=== PATIENT | female | born 1995 | race Caucasian/White ===

== ENCOUNTER 2016-10-04 22:22 | Emergency (ER) | payer MEDICAID ==
--- NOTE | 2016-10-04 22:34 | ERPHSYRPT ---
- History of Present Illness Time Seen by Provider: 10/04/16 22:29 Source: patient Exam Limitations: no limitations Physician History: The patient is a 21-year-old female with her significant other complaining of a painful itchy "rash" in her genital region that has gotten worse over the past 2 days. She has no significant past medical history of skin rashes. Timing/Duration: day(s) (2) Quality: burning, painful Severity: moderate Location: genitalia Possible Causes: no cause identified Associated Symptoms: rash Allergies/Adverse Reactions: sulfamethoxazole [From Bactrim] Allergy (Mild, Verified 08/12/13 20:33) Hives ALSO REPORTS DIZZINESS trimethoprim [From Bactrim] Allergy (Mild, Verified 08/12/13 20:33) Hives ALSO REPORTS DIZZINESS Hx Tetanus, Diphtheria Vaccination/Date Given: Yes Hx Influenza Vaccination/Date Given: No Hx Pneumococcal Vaccination/Date Given: No - Review of Systems Constitutional: No Fever, No Chills Eyes: No Symptoms Ears, Nose, & Throat: No Symptoms Respiratory: No Cough, No Dyspnea Cardiac: No Chest Pain, No Edema, No Syncope Abdominal/Gastrointestinal: No Abdominal Pain, No Nausea, No Vomiting, No Diarrhea Genitourinary Symptoms: No Dysuria Musculoskeletal: No Back Pain, No Neck Pain Skin: Rash, Skin Lesions Neurological: No Dizziness, No Focal Weakness, No Sensory Changes Psychological: No Symptoms Endocrine: No Symptoms Hematologic/Lymphatic: No Symptoms Immunological/Allergic: No Symptoms All Other Systems: Reviewed and Negative - Past Medical History Pertinent Past Medical History: Yes Neurological History: No Pertinent History ENT History: No Pertinent History Cardiac History: No Pertinent History Respiratory History: No Pertinent History Endocrine Medical History: No Pertinent History Musculoskeletal History: No Pertinent History GI Medical History: No Pertinent History History: No Pertinent History Psycho-Social History: Depression Female Reproductive Disorders: Other Other Medical History: CYST ON OVARIES - Past Surgical History Past Surgical History: Yes Neuro Surgical History: No Pertinent History Cardiac: No Pertinent History Respiratory: No Pertinent History Gastrointestinal: No Pertinent History Genitourinary: No Pertinent History Musculoskeletal: No Pertinent History Female Surgical History: No Pertinent History Other Surgical History: TONSILECTOMY - Social History Smoking Status: Current every day smoker How long have you smoked: 2 Exposure to second hand smoke: Yes Drug Use: none Patient Lives Alone: No Significant Family History: no pertinent family hx - Female History Hx Now: No - Physical Exam General Appearance: no apparent distress, alert Eye Exam: PERRL/EOMI, eyes nml inspection Ears, Nose, Throat Exam: normal ENT inspection, pharynx normal, moist mucous membranes Neck Exam: normal inspection, non-tender, supple, full range of motion Respiratory Exam: normal breath sounds, lungs clear, No respiratory distress Cardiovascular Exam: regular rate/rhythm, normal heart sounds Gastrointestinal/Abdomen Exam: soft, mass, No tenderness Pelvic Exam: other (Examination of the external genitalia region is significant for 3-4 pustular lesions on each side of the vulva. The patient has shaved her pubic hair. These pustular lesions appear to be at the follicles.) Rectal Exam: not done Back Exam: normal inspection, normal range of motion, No CVA tenderness, No vertebral tenderness Extremity Exam: normal inspection, normal range of motion Neurologic Exam: alert, oriented x 3, cooperative, normal mood/affect, sensation nml, No motor deficits Skin Exam: rash (as noted in pelvic note) SpO2 Interpretation: normal - Progress Progress: unchanged Counseled pt/family regarding: diagnosis - Departure Time of Disposition: 22:36 Departure Disposition: Home Clinical Impression: Folliculitis barbae Condition: Stable Critical Care Time: No Additional Instructions: You have an infection in the hair follicles around your genitals. He was given a prescription for clindamycin 300 mg 3 times a day for 7 days. Avoid shaving the region until healed. Prescriptions: Clindamycin HCl 1 cap PO TID #21 capsule
[2016-10-04] MEDS ORDERED: CLEOCIN 150 MG CAPSULE PO ONE (22:39)
[2016-10-04] MEDS ORDERED: CLEOCIN 150 MG CAPSULE ONE (22:43)
[2016-10-04 23:04] VITALS: BP 130/78; PULSE 88; O2SAT 100
== END 2016-10-04 23:04 | disposition home or self-care (01) ==
LOC: ED 22:22
DX: L73.8 Other specified follicular disorders (principal)
CPT/HCPCS: 99283; A9270-GY

== ENCOUNTER 2017-02-28 01:01 | Emergency (ER) | payer OTHER ==
--- NOTE | 2017-02-28 01:23 | ERPHSYRPT ---
- History of Present Illness Time Seen by Provider: 02/28/17 01:10 Source: patient Exam Limitations: no limitations Physician History: FOR THE PAST WEEK PT HAS HAD LOW ABDOMINAL PAIN, LOW BACK PAIN, DIAPHORESIS AND SWOLLEN LEGS; FOR THE PAST 2 DAYS SPOTTING; FOR THE PAST 9 WEEKS INCREASED URINARY FREQUENCY. LMP WAS 9 WEEKS AGO. PT HAS SEEN DR BATISTA(OB DR) [place] WITH A NORMAL ULTRASOUND 2 WEEKS AGO. Allergies/Adverse Reactions: sulfamethoxazole [From Bactrim] Allergy (Mild, Verified 08/12/13 20:33) Hives ALSO REPORTS DIZZINESS trimethoprim [From Bactrim] Allergy (Mild, Verified 08/12/13 20:33) Hives ALSO REPORTS DIZZINESS Hx Tetanus, Diphtheria Vaccination/Date Given: Yes Hx Influenza Vaccination/Date Given: No Hx Pneumococcal Vaccination/Date Given: No - Review of Systems Constitutional: No Fever Abdominal/Gastrointestinal: Abdominal Pain, No Vomiting Genitourinary Symptoms: Frequency, Vaginal Bleeding Musculoskeletal: Back Pain (LOW), Other (SWOLLEN LEGS) Endocrine: Excessive Sweating All Other Systems: Reviewed and Negative - Past Medical History Pertinent Past Medical History: Yes Neurological History: No Pertinent History ENT History: No Pertinent History Cardiac History: No Pertinent History Respiratory History: No Pertinent History Endocrine Medical History: No Pertinent History Musculoskeletal History: No Pertinent History GI Medical History: No Pertinent History History: No Pertinent History Psycho-Social History: Depression Female Reproductive Disorders: Other Other Medical History: CYST ON OVARIES - Past Surgical History Past Surgical History: Yes Neuro Surgical History: No Pertinent History Cardiac: No Pertinent History Respiratory: No Pertinent History Gastrointestinal: No Pertinent History Genitourinary: No Pertinent History Musculoskeletal: No Pertinent History Female Surgical History: No Pertinent History Other Surgical History: TONSILECTOMY - Social History Smoking Status: Current every day smoker How long have you smoked: 2 Exposure to second hand smoke: Yes Drug Use: none Patient Lives Alone: No Significant Family History: no pertinent family hx - Female History Hx Now: No - Nursing Vital Signs Nursing Vital Signs: Initial Vital Signs Temperature 98.0 F 02/28/17 01:06 Pulse Rate 109 H 02/28/17 01:06 Respiratory Rate 20 02/28/17 01:06 Blood Pressure 160/86 02/28/17 01:06 O2 Sat by Pulse Oximetry 97 02/28/17 01:06 Pain Scale Pain Intensity 6 - Physical Exam General Appearance: alert Eye Exam: PERRL/EOMI Ears, Nose, Throat Exam: pharynx normal, moist mucous membranes Neck Exam: normal inspection Respiratory Exam: lungs clear Cardiovascular Exam: normal heart sounds Gastrointestinal/Abdomen Exam: soft, normal bowel sounds, tenderness (MILD DIFFUSE TENDERNESS) Back Exam: normal range of motion Extremity Exam: normal inspection, No pedal edema Neurologic Exam: alert, cooperative Skin Exam: warm, dry SpO2 Interpretation: normal SpO2: 97 Oxygen Delivery: Room Air - Course Nursing assessment & vital signs reviewed: Yes - Radiology Ultrasound Exam OB Ultrasound: Other (TECH REPORT: SMALL SUBCHORIONIC HEMORRHAGE; HEART RATE = 132.) Ordered Tests: Active Orders 24 hr Category Date Time Status OB TRANSVAGINAL [US] Stat Exams 02/28/17 03:10 Ordered AMYLASE Stat Lab 02/28/17 01:31 Completed CBC W DIFF Stat Lab 02/28/17 01:31 Completed CMP Stat Lab 02/28/17 01:31 Completed HCG, Quantitative (Inhouse) Stat Lab 02/28/17 01:31 Completed LIPASE Stat Lab 02/28/17 01:31 Completed UA W/RFX UR CULTURE Stat Lab 02/28/17 01:21 Completed Lab/Rad Data: Laboratory Result Diagrams 02/28/17 01:31 02/28/17 01:31 Laboratory Results 02/28/17 02/28/17 02/28/17 Range/Units 01:31 01:31 01:31 WBC 13.4 H (4.0-10.5) K/mm3 RBC 3.99 L (4.1-5.4) M/mm3 Hgb 12.8 (12.0-16.0) gm/dl Hct 38.0 (35-47) % MCV 95.2 (78-100) fl MCH 32.0 (26-32) pg MCHC 33.7 (32-36) g/dl RDW 12.5 (11.5-14.0) % Plt Count 235 (150-450) K/mm3 MPV 10.0 H (6-9.5) fl Gran % 61.8 (36.0-66.0) % Lymphocytes % 28.4 (24.0-44.0) % Monocytes % 7.8 (0.0-12.0) % Eosinophils % 1.8 (0.00-5.0) % Basophils % 0.2 (0.0-0.4) % Basophils # 0.03 (0-0.4) Sodium 138 (136-145) mEq/L Potassium 3.9 (3.5-5.1) mEq/L Chloride 106 (98-107) mEq/L Carbon Dioxide 23.7 (21-32) mEq/L Anion Gap 12.2 (5-15) MEQ/L BUN 19 (9-20) mg/dL Creatinine 0.95 (0.55-1.30) mg/dl Estimated GFR > 60 ML/MIN Glucose 105 (70-110) MG/DL Calcium 8.6 (8.5-10.1) mg/dL Total Bilirubin 0.30 (0.2-1.0) mg/dL AST 18 (15-37) U/L ALT 32 (12-78) U/L Alkaline Phosphatase 60 (46-116) U/L Serum Total Protein 6.8 (6.4-8.2) gm/dL Albumin 3.4 (3.4-5.0) g/dL Amylase 51 (25-115) U/L Lipase 150 (73-393) U/L Beta HCG, Quant 30236 H (0-6) IU/L Ur Collection Type Urine Color (YELLOW) Urine Appearance (CLEAR) Urine pH (5-6) Ur Specific [place] (1.005-1.025) Urine Protein (Negative) Urine Ketones (NEGATIVE) Urine Blood (0-5) Clay/ul Urine Nitrite (NEGATIVE) Urine Bilirubin (NEGATIVE) Urine Urobilinogen (0-1) mg/dL Ur Leukocyte Esterase (NEGATIVE) Urine Glucose (NEGATIVE) mg/dL Specimen Received 02/28/17 Range/Units 01:21 WBC (4.0-10.5) K/mm3 RBC (4.1-5.4) M/mm3 Hgb (12.0-16.0) gm/dl Hct (35-47) % MCV (78-100) fl MCH (26-32) pg MCHC (32-36) g/dl RDW (11.5-14.0) % Plt Count (150-450) K/mm3 MPV (6-9.5) fl Gran % (36.0-66.0) % Lymphocytes % (24.0-44.0) % Monocytes % (0.0-12.0) % Eosinophils % (0.00-5.0) % Basophils % (0.0-0.4) % Basophils # (0-0.4) Sodium (136-145) mEq/L Potassium (3.5-5.1) mEq/L Chloride (98-107) mEq/L Carbon Dioxide (21-32) mEq/L Anion Gap (5-15) MEQ/L BUN (9-20) mg/dL Creatinine (0.55-1.30) mg/dl Estimated GFR ML/MIN Glucose (70-110) MG/DL Calcium (8.5-10.1) mg/dL Total Bilirubin (0.2-1.0) mg/dL AST (15-37) U/L ALT (12-78) U/L Alkaline Phosphatase (46-116) U/L Serum Total Protein (6.4-8.2) gm/dL Albumin (3.4-5.0) g/dL Amylase (25-115) U/L Lipase (73-393) U/L Beta HCG, Quant (0-6) IU/L Ur Collection Type VOID Urine Color YELLOW (YELLOW) Urine Appearance CLEAR (CLEAR) Urine pH 7.0 (5-6) Ur Specific [place] 1.010 (1.005-1.025) Urine Protein NEGATIVE (Negative) Urine Ketones NEGATIVE (NEGATIVE) Urine Blood NEGATIVE (0-5) Clay/ul Urine Nitrite NEGATIVE (NEGATIVE) Urine Bilirubin NEGATIVE (NEGATIVE) Urine Urobilinogen NORMAL (0-1) mg/dL Ur Leukocyte Esterase NEGATIVE (NEGATIVE) Urine Glucose NEGATIVE (NEGATIVE) mg/dL Specimen Received 02/28/170 - Departure Time of Disposition: 04:02 Departure Disposition: Home Clinical Impression: THREATENED Condition: Stable Critical Care Time: No Referrals: SYLVIA PHAM [Primary Care Provider] - Instructions: Threatened Additional Instructions: FOLLOW UP WITH OB DR(DR BATISTA) LATER TODAY. STRICT BED REST.
[2017-02-28 01:35] LABS: BASOPHIL % 0.2 % (0.0-0.4); Eosinophil % 1.8 % (0.00-5.0); Granulocytes % 61.8 % (36.0-66.0); Lymphocytes % 28.4 % (24.0-44.0); Mean Cell Volume 95.2 fl (78-100); Monocytes % 7.8 % (0.0-12.0); Platelet Count 235 K/mm3 (150-450); Red Blood Count 3.99 M/mm3 (4.1-5.4); Red Cell Distribution Width 12.5 % (11.5-14.0); White Blood Count 13.4 K/mm3 (4.0-10.5)
[2017-02-28 02:01] LABS: ADD URINE CULTURE? NO (NO); Bilirubin NEGATIVE (NEGATIVE); Blood NEGATIVE Ery/ul (0-5); COMPLETE URINE MICROSCOPIC? NO; Collection Type VOID; Glucose NEGATIVE (NEGATIVE); Leukocyte Esterase NEGATIVE (NEGATIVE)
[2017-02-28 02:04] LABS: ALBUMIN 3.4 g/dL (3.4-5.0); ALKALINE PHOSPHATASE 60 U/L (46-116); ANION GAP 12.2 MEQ/L (5-15); BLOOD UREA NITROGEN 19 mg/dL (9-20); CHLORIDE 106 mEq/L (98-107); Carbon Dioxide 23.7 mEq/L (21-32); Glucose 105 MG/DL (70-110); LIPASE 150 U/L (73-393); Potassium 3.9 mEq/L (3.5-5.1); SGOT/AST 18 U/L (15-37); SGPT/ALT 32 U/L (12-78); SODIUM 138 mEq/L (136-145); Total Protein 6.8 gm/dL (6.4-8.2)
[2017-02-28 04:09] VITALS: BP 130/70; PULSE 86; O2SAT 98
--- NOTE | 2017-02-28 08:57 | XRAY ---
Indication: Pain. Two-dimensional transvaginal early OB ultrasound performed. Comparison: None for this . There is a single intrauterine gestational sac with presence of a single pole. The mean sac diameter is 1.90 cm corresponding to 6 weeks 2 days. [place]-rump length measures 0.68 cm corresponding to 6 weeks 4 days. heart rate 132 bpm. Small curvilinear subchorionic hemorrhage measuring 1.7 x 0.9 x 0.7 cm. Left and right ovaries identified with a 2.5 cm left ovary corpus luteal cyst. No suspicious adnexal mass or free fluid. Impression: Single viable intrauterine measuring 6 weeks 3 days. Small subchorionic hemorrhage. Expected date confinement is October 21, 2017. Comment: Preliminary report was given.
== END 2017-02-28 04:09 | disposition home or self-care (01) ==
LOC: ED 01:01
DX: O20.0 Threatened abortion (principal)
CPT/HCPCS: 36415; 76817; 80053; 81002; 82150; 83690; 84702; 85025; 99284

== ENCOUNTER 2017-09-23 17:19 | Inpatient (IN) | payer OTHER ==
[2017-09-23] MEDS ORDERED: MORPHINE SULFATE 4 MG INJ IV ONE (17:21)
[2017-09-23] MEDS ORDERED: MORPHINE SULFATE 4 MG INJ ONE (17:23)
[2017-09-23] MEDS ORDERED: Lactated Ringers 2,000 ML IV ONE (17:23)
[2017-09-23] MEDS ORDERED: Lactated Ringers 1,000 ML IV SCH (17:30)
[2017-09-23 17:39] LABS: Hematocrit 37.8 % (35-47); Hemoglobin 12.7 gm/dl (12.0-16.0); Mean Cell Volume 92.6 fl (78-100); Mean Corpuscular Hemoglobin 31.1 pg (26-32); Mean Corpuscular Hgb Concent. 33.6 g/dl (32-36); Mean Platelet Volume 11.8 fl (6-9.5); Platelet Count 225 K/mm3 (150-450); Red Blood Count 4.08 M/mm3 (4.1-5.4); Red Cell Distribution Width 14.5 % (11.5-14.0); White Blood Count 9.3 K/mm3 (4.0-10.5)
[2017-09-23 17:57] LABS: ALBUMIN 3.6 g/dl (3.5-5.0); ALKALINE PHOSPHATASE 177 U/L (38-126); ANION GAP 18.2 MEQ/L (5-15); BLOOD UREA NITROGEN 6 mg/dl (7-17); CHLORIDE 106 mEq/L (98-107); Carbon Dioxide 17 mmol/L (22-30); Creatinine 1 0.72 mg/dl (0.52-1.04); Glucose 103 mg/dL (74-106); Potassium 3.6 mmol/L (3.5-5.1); SGOT/AST 89 U/L (14-36); SGPT/ALT 42 U/L (0-35); SODIUM 137 mmol/L (137-145); Total Protein 7.3 mg/dl (6.3-8.2)
[2017-09-23] MEDS ORDERED: OB EPIDURAL NAROPIN/SUFENTANIL IN NACL EPIDURAL PRN (18:00)
[2017-09-23] MEDS ORDERED: Lactated Ringers 1,000 ML IV ONE (18:00)
[2017-09-23] MEDS ORDERED: PITOCIN 30 UNITS/ LR 500 ML 500 ML IV SCH (18:00)
[2017-09-23] MEDS ORDERED: Ephedrine Sulfate 50 MG/ML IV PRN (18:00)
[2017-09-23 18:30] LABS: ATYPICAL LYMPHS 5 %; BAND 6 % (0.0-2.0); Lymphocytes 25 % (24-44); Monocyte 12 % (0.0-12.0); Neutrophils 52 % (36.0-66.0); Platelet Estimate NORMAL (NORMAL); Total Cells Counted 100
[2017-09-23 18:33] LABS: Amphetamine,Urine NEGATIVE (NEGATIVE); Barbiturate,Urine NEGATIVE (NEGATIVE); Benzodiazepine,Urine NEGATIVE (NEGATIVE); Cocaine,Urine NEGATIVE (NEGATIVE); Methadone,Urine NEGATIVE (NEGATIVE); Opiate,Urine NEGATIVE (NEGATIVE); PCP,Urine NEGATIVE (NEGATIVE); THC,Urine NEGATIVE (NEGATIVE)
[2017-09-23] MEDS ORDERED: XYLOCAINE 1% HCL 20 ML MDV ONE ×2 (18:48→21:18)
[2017-09-23 21:07] LABS: Appearance CLEAR (CLEAR); Bacteria FEW /HPF (NEGATIVE); Bilirubin NEGATIVE (NEGATIVE); Blood NEGATIVE Ery/ul (0-5); Epithelial Cells MODERATE /HPF (FEW); Glucose NEGATIVE (NEGATIVE); Ketones LARGE (NEGATIVE); Leukocyte Esterase TRACE (NEGATIVE); Mucus MODERATE /HPF (NEGATIVE); Nitrite NEGATIVE (NEGATIVE); Protein,Urine Dip 30 (Negative); Urobilinogen NORMAL mg/dL (0-1)
[2017-09-23] MEDS ORDERED: PITOCIN 30 UNITS/ LR 500 ML 500 ML IV ONE (21:18)
[2017-09-23] MEDS ORDERED: TUCKS TP ONE (23:59)
[2017-09-23] MEDS ORDERED: Dermoplast Spray ONE (23:59)
[2017-09-23] MEDS ORDERED: LANSINOH 40 GM ONE (23:59)
[2017-09-24] MEDS ORDERED: LANSINOH 40 GM TOP PRN (00:01)
[2017-09-24] MEDS ORDERED: Dermoplast Spray TP PRN (00:01)
[2017-09-24] MEDS: TUCKS TP PRN ×2 (00:05→22:53)
[2017-09-24] MEDS: MOTRIN 400 MG PO PRN ×3 (00:57→22:49)
[2017-09-24] MEDS ORDERED: Mylicon 80MG PO PRN (02:05)
[2017-09-24] MEDS ORDERED: Dulcolax 10 MG SUPP PR PRN (02:05)
[2017-09-24] MEDS ORDERED: Anucort-HC SUPPOSITORY PR PRN (02:05)
[2017-09-24] MEDS ORDERED: TYLENOL EXTRA STRENGTH 500 MG PO PRN (02:05)
[2017-09-24] MEDS ORDERED: CORTISONE 1% CREAM TP PRN (02:05)
[2017-09-24] MEDS ORDERED: NORCO 5/325 MG PO PRN (02:05)
[2017-09-24] MEDS ORDERED: Ambien 10 MG PO PRN (02:05)
[2017-09-24 06:00] LABS: BASOPHIL % 0.1 % (0.0-0.4); Basophil (Absolute #) 0.01 (0-0.4); Eosinophil % 0.3 % (0.00-5.0); Eosinophil (Absolute #) 0.04 (0-0.5); Granulocyte Absolute (ANC) 7.34 (1.4-6.9); Granulocytes % 62.6 % (36.0-66.0); Hemoglobin 9.4 gm/dl (12.0-16.0); Lymphocyte (Absolute #) 2.88 (1.0-4.6); Lymphocytes % 24.6 % (24.0-44.0); Mean Cell Volume 94.5 fl (78-100); Mean Corpuscular Hemoglobin 30.6 pg (26-32); Mean Corpuscular Hgb Concent. 32.4 g/dl (32-36); Mean Platelet Volume 11.9 fl (6-9.5); Monocyte (Absolute #) 1.46 (0.0-1.3); Monocytes % 12.4 % (0.0-12.0); Platelet Count 212 K/mm3 (150-450); Red Blood Count 3.07 M/mm3 (4.1-5.4); Red Cell Distribution Width 14.3 % (11.5-14.0); White Blood Count 11.7 K/mm3 (4.0-10.5)
[2017-09-24] MEDS ORDERED: FERREX 150 PO SCH (10:00)
[2017-09-24] MEDS: FEOSOL 325 MG PO SCH ×2 (11:07→22:49)
[2017-09-24] MEDS: Colace 100 MG PO SCH ×2 (11:07→22:50)
[2017-09-24] MEDS: THERAGRAN MULTIVITAMIN PO SCH (11:08)
[2017-09-24] MEDS: KEFLEX 500 MG PO SCH ×4 (11:08→22:50)
[2017-09-24] MEDS ORDERED: MEDICATION INTERVENTION PO SCH (14:45)
[2017-09-24] MEDS ORDERED: NALOXONE HCL PO SCH (22:00)
[2017-09-24] MEDS ORDERED: [UNRECOGNIZED DRUG - OTHER] PO SCH (22:00)
[2017-09-24] MEDS ORDERED: BUPRENORPHINE HCL PO SCH (22:00)
[2017-09-25] MEDS ORDERED: Adacel Vial IM ONE (09:00)
[2017-09-25] MEDS: THERAGRAN MULTIVITAMIN PO SCH (09:43)
[2017-09-25] MEDS: KEFLEX 500 MG PO SCH ×3 (09:43→17:36)
[2017-09-25] MEDS: Colace 100 MG PO SCH ×2 (09:43→20:45)
[2017-09-25] MEDS: FEOSOL 325 MG PO SCH ×2 (09:43→20:45)
[2017-09-25] MEDS ORDERED: [UNRECOGNIZED DRUG - REMARK] PO SCH (10:00)
[2017-09-25] MEDS: MOTRIN 400 MG PO PRN (14:32)
[2017-09-26] MEDS: KEFLEX 500 MG PO SCH (00:50)
--- NOTE | 2017-09-26 07:10 | PCM.DS ---
Discharge Summary Date of Admission: 09/23/17 18:00 Admitting Physician: BASIM MALCOLM Consults: Consults on Case 09/23/17 18:00 Notify Anesthesia Provider PRN 09/24/17 02:14 Notify Physician ROUTINE Primary Care Provider: BASIM MALCOLM Allergies Allergies sulfamethoxazole [From Bactrim] Allergy (Mild, Verified 08/12/13 20:33) Hives ALSO REPORTS DIZZINESS trimethoprim [From Bactrim] Allergy (Mild, Verified 08/12/13 20:33) Hives ALSO REPORTS DIZZINESS Hospital Summary - Hospital Course Hospital Course: patient arrived in spont labor at 36 wks. hx of suboxone therapy and hep C. bottle feeding, uneventful delivery. mild lochia - Vitals & Intake/Output Vital Signs: Vital Signs Temperature 98.5 F 09/26/17 02:00 Pulse Rate 95 H 09/26/17 02:00 Respiratory Rate 16 09/26/17 02:00 Blood Pressure 130/71 09/26/17 02:00 O2 Sat by Pulse Oximetry Intake & Output: Intake & Output 09/23/17 09/24/17 09/25/17 09/26/17 11:59 11:59 11:59 11:59 Output Total 400 Balance -400 Weight 92.9 kg - Lab Result Diagrams: 09/24/17 05:08 09/23/17 17:35 Micro Results-Entire Visit: Microbiology 09/23/17 20:51 - Final Urine, Catheterized NO GROWTH Discharge Exam General Appearance: no apparent distress, alert Respiratory Exam: normal breath sounds, lungs clear, No respiratory distress Cardiovascular Exam: regular rate/rhythm, normal heart sounds Gastrointestinal/Abdomen Exam: soft, No tenderness, No mass Extremity Exam: normal inspection, normal range of motion Final Diagnosis/Problem List - Final Discharge Diagnosis/Problem (1) Vaginal delivery Current Visit: Yes Status: Acute (2) Second degree perineal laceration Current Visit: Yes Status: Acute (3) Opiate addiction Current Visit: Yes Status: Acute (4) Hepatitis C Current Visit: Yes Status: Acute - Discharge Disposition: Home, Self-Care Condition: Stable Prescriptions: Continue Pnv No.95/Ferrous Fum/Folic AC [ Formula Tablet] 1 tab PO DAILY Ferrous Sulfate 1 tab PO BID Buprenorphine HCl/Naloxone HCl [Buprenorphin-Naloxon 8-2 mg Sl] 1 tab PO BID Discontinued Promethazine HCl 25 mg [Phenergan 25 mg] 25 mg PO Q6HPRN PRN PRN Reason: Nausea Cephalexin [Cephalexin] 1 tab PO QID Follow up with: BASIM MALCOLM MD [Primary Care Provider] - 1 Week
[2017-09-26] MEDS: MOTRIN 400 MG PO PRN (07:56)
[2017-09-26 08:13] VITALS: BP 120/66; PULSE 79
== END 2017-09-26 09:30 | disposition home or self-care (01) | DRG 774 ==
LOC: OB 17:19 → OBSVTOIN 18:00 → OB 18:00
PROVIDERS: ADMIT Family Medicine; ATTEND Family Medicine
PROC: 0KQM0ZZ Repair Perineum Muscle, Open Approach (ICD-10-PCS; principal; 2017-09-23)
PROC: 10E0XZZ Delivery of Products of Conception, External Approach (ICD-10-PCS; 2017-09-23)
DX: O70.1 Second degree perineal laceration during delivery (principal); O98.413 Viral hepatitis complicating pregnancy, third trimester; Z37.0 Single live birth; O99.323 Drug use complicating pregnancy, third trimester; F11.20 Opioid dependence, uncomplicated; B19.20 Unspecified viral hepatitis C without hepatic coma; Z3A.36 36 weeks gestation of pregnancy; D64.9 Anemia, unspecified
CPT/HCPCS: 36415; 80053; 80307; 81000; 85025; 86317; 86592; 86701; 86702; 86803; 87081; 87086; 87340; 87389; 87491; 87522; 87591; 90715; G0378; J2270; J2590; J2795; A9270-GY

== ENCOUNTER 2021-06-28 10:28 | Observation (INO) | payer OTHER ==
[2021-06-28] MEDS ORDERED: BENADRYL 50 MG/ML IV ONE (11:12)
[2021-06-28] MEDS ORDERED: Ativan 2 MG/1 ML VIAL IV ONE ×2 (11:12→12:44)
[2021-06-28] MEDS ORDERED: Ativan 2 MG/1 ML VIAL ONE ×2 (11:24→12:46)
[2021-06-28] MEDS ORDERED: BENADRYL 50 MG/ML ONE (11:24)
[2021-06-28 11:26] LABS: Absolute Neutrophil Ct (ANC) 3.86 (1.4-6.9); BASOPHIL % 0.3 % (0.0-0.4); Basophil (Absolute #) 0.02 (0-0.4); Eosinophil % 0.8 % (0.00-5.0); Eosinophil (Absolute #) 0.05 (0-0.5); Hematocrit 47.4 % (35-47); Hemoglobin 15.5 gm/dl (12.0-16.0); Lymphocyte (Absolute #) 2.02 (1.0-4.6); Lymphocytes % 30.9 % (24.0-44.0); Mean Cell Volume 98.8 fl (78-100); Mean Corpuscular Hemoglobin 32.3 pg (26-32); Mean Corpuscular Hgb Concent. 32.7 g/dl (32-36); Monocyte (Absolute #) 0.59 (0.0-1.3); Platelet Count 277 K/mm3 (150-450); Red Cell Distribution Width 12.6 % (11.5-14.0); White Blood Count 6.5 K/mm3 (4.0-10.5)
[2021-06-28 11:29] LABS: ACETAMINOPHEN < 10 ug/ml (10-30); ALBUMIN 4.3 g/dL (3.5-5.0); ALKALINE PHOSPHATASE 69 U/L (38-126); BLOOD UREA NITROGEN 13 mg/dL (7-17); CHLORIDE 107 mmol/L (98-107); Calcium 9.1 mg/dL (8.4-10.2); Carbon Dioxide 23 mmol/L (22-30); Creatinine 1 0.77 mg/dL (0.52-1.04); EST GLOMERULAR FILTRATION RATE > 60.0 ML/MIN; Glucose 97 mg/dL (74-106); Potassium 4.3 mmol/L (3.5-5.1); SALICYLATE < 1.0 mg/dL (2-20); SGOT/AST 40 U/L (14-36); SGPT/ALT 43 U/L (0-35); SODIUM 139 mmol/L (137-145); Total Protein 7.5 g/dL (6.3-8.2)
[2021-06-28 11:36] LABS: Appearance SLIGHTLY CLOUDY (CLEAR); Bilirubin NEGATIVE (NEGATIVE); Blood NEGATIVE Ery/ul (0-5); Epithelial Cells RARE /HPF (FEW); Glucose NEGATIVE (NEGATIVE); Ketones NEGATIVE (NEGATIVE); Leukocyte Esterase NEGATIVE (NEGATIVE); Mucus SLIGHT /HPF (NEGATIVE); Nitrite NEGATIVE (NEGATIVE); Protein,Urine Dip 30 (Negative); RBC 0-2 /HPF (0-2); Specific Gravity 1.024 (1.005-1.025); Urobilinogen 2 mg/dL (0-1)
[2021-06-28] MEDS ORDERED: Zofran 4 MG/2 ML VIAL IV ONE (11:40)
[2021-06-28] MEDS ORDERED: Sodium Chloride 0.9% 1000 ML 1,000 ML IV STA (11:40)
--- NOTE | 2021-06-28 11:41 | ERPHSYRPT ---
- History of Present Illness Time Seen by Provider: 06/28/21 10:38 Source: patient Exam Limitations: no limitations Patient Subjective Stated Complaint: Pt attempted to kill herself 2 days ago with a gun but it jammed and she is withdrawing from Suboxone, gabapentin and me th Triage Nursing Assessment: Pt brought to the ER by a friend, tachycardic, rates pain over entire body as 03/25, pt got out of [facility] on Jun 07 and was clean at that time but that night she started right back up on suboxone, gabapentin and meth, pt had run out of her drugs a couple of night ago but then got some and knew that she would be out after that so she decided that she should go ahead and try and kill herself then, that is when she attempted to shoot herself in the head with a handgun but it jammed and therefore she was not shot, pt is now going through withdraw and her entire body is hurting and she is nauseous and her friend talked her into coming in and getting help, pt is very cooperative and willing to be here, pt is homeless, pt's family is in [place] and she does speak to them but they will not let her live with them, pulses normal, skin n/w/d, talks clearly and calmly Physician History: 25 years old female with history of drug abuse, anxiety, depression presented in the ER with her friend after suicidal attempt at home. Patient reports she [facility] in [facility], released last month and start doing drugs Suboxone/Neur ontin/methamphetamine and stopped using few days ago and is going through horrible withdrawals with aches and pains all over with nausea, belly discomfort, chest tightness and worsening of anxiety. She started to have suicidal thoughts this morning after she had arguments with her significant other and took a gun and tried to blow her head but gun jammed. Denies having history of suicidal attempts in the past. Patient reports she needs help and is willing to go voluntarily. Denies any homicidal ideations. Timing/Duration: today, gradual onset, worse Severity of Symptoms-Max: severe Context related to: other Suicidal thoughts: attempt Associated Symptoms: suicidal ideation Previous symptoms: no prior history Allergies/Adverse Reactions: sulfamethoxazole [From Bactrim] Allergy (Mild, Verified 06/28/21 10:54) Hives ALSO REPORTS DIZZINESS trimethoprim [From Bactrim] Allergy (Mild, Verified 06/28/21 10:54) Hives ALSO REPORTS DIZZINESS Home Medications: Aripiprazole 10 mg [Abilify 10 MG] 5 mg PO BID 06/28/21 [History] Buspirone HCl 15 mg PO TID 06/28/21 [History] Hx Tetanus, Diphtheria Vaccination/Date Given: Yes Hx Influenza Vaccination/Date Given: No Hx Pneumococcal Vaccination/Date Given: No Travel Risk - International Travel Have you traveled outside of the country in past 3 weeks: No - Coronavirus Screening Are you exhibiting any of the following symptoms?: No Close contact with a COVID-19 positive Pt in past 14-21 Days: No - Vaccine Status Have you recieved a Covid-19 vaccination: No - Past Medical History Pertinent Past Medical History: Yes Neurological History: No Pertinent History ENT History: No Pertinent History Cardiac History: No Pertinent History Respiratory History: No Pertinent History Endocrine Medical History: No Pertinent History Musculoskeletal History: No Pertinent History GI Medical History: No Pertinent History History: No Pertinent History Psycho-Social History: Anxiety, Depression Female Reproductive Disorders: Other Other Medical History: CYST ON OVARIES, lower back pain - Past Surgical History Past Surgical History: Yes Neuro Surgical History: No Pertinent History Cardiac: No Pertinent History Respiratory: No Pertinent History Gastrointestinal: No Pertinent History Genitourinary: No Pertinent History Musculoskeletal: No Pertinent History Female Surgical History: No Pertinent History Other Surgical History: TONSILECTOMY - Social History Smoking Status: Current every day smoker How long have you smoked: 2 Exposure to second hand smoke: Yes Drug Use: methamphetamines, other Patient Lives Alone: Yes (homeless) Significant Family History: no pertinent family hx - Female History Hx Last Menstrual Period: 06/19/2021 Hx Now: No - Review of Systems Constitutional: Chills, Fatigue, Weakness Eyes: No Symptoms Ears, Nose, & Throat: Nose Congestion Respiratory: No Symptoms Cardiac: No Symptoms Abdominal/Gastrointestinal: Abdominal Pain, Nausea, Vomiting, Diarrhea Genitourinary Symptoms: No Symptoms Musculoskeletal: Myalgias Skin: No Symptoms Neurological: Headache, Tremors Psychological: Anxiety, Depression, Suicidal Ideations, Emotional Lability Endocrine: No Symptoms Hematologic/Lymphatic: No Symptoms Immunological/Allergic: No Symptoms - Nursing Vital Signs Nursing Vital Signs: Initial Vital Signs Temperature 98.6 F 06/28/21 10:37 Pulse Rate 121 H 06/28/21 10:37 Blood Pressure 125/83 06/28/21 10:37 O2 Sat by Pulse Oximetry 97 06/28/21 10:37 Pain Scale Pain Intensity 0 - Physical Exam General Appearance: no apparent distress, alert, anxiety Eyes, Ears, Nose, Throat Exam: normal ENT inspection, TMs normal, pharynx normal, moist mucous membranes Neck Exam: normal inspection, non-tender, supple, full range of motion Respiratory Exam: normal breath sounds, lungs clear Cardiovascular Exam: normal heart sounds, tachycardia Gastrointestinal/Abdominal Exam: soft, normal bowel sounds, No tenderness Extremities Exam: normal inspection Current Suicidality: has suicide plan Neurological Exam: alert, calm, ambulatory technologist II-XII nml as tested, oriented x 3, No normal mood/affect Appearance: appropriate insight, no memory impairment Behavior/Eye Contact/Speech: alert & cooperative Thoughts/Hallucinations: normal thought pattern Skin Exam: normal color SpO2 Interpretation: normal SpO2: 99 O2 Delivery: Room Air Ordered Tests: Active Orders 24 hr Category Date Time Status CHEST 1 VIEW (PORTABLE) Stat Exams 06/28/21 17:41 Ordered ACETAMINOPHEN Stat Lab 06/28/21 11:02 Completed CBC W DIFF Stat Lab 06/28/21 11:02 Completed CMP Stat Lab 06/28/21 11:02 Completed HCG,QUALITATIVE URINE Stat Lab 06/28/21 10:54 Completed SALICYLATE Stat Lab 06/28/21 11:02 Completed UA W/RFX UR CULTURE Stat Lab 06/28/21 10:54 Completed Urine Triage Profile Stat Lab 06/28/21 10:54 Completed Medication Summary Discontinued Medications Generic Name Dose Route Start Last Admin Trade Name Karrie PRN Reason Stop Dose Admin Diphenhydramine HCl 25 mg 06/28/21 11:12 06/28/21 11:26 Diphenhydramine Hcl 50 Mg/Ml Vial IV 06/28/21 11:13 25 mg STAT ONE Administration Diphenhydramine HCl Confirm 06/28/21 11:24 Diphenhydramine Hcl 50 Mg/Ml Vial Administered 06/28/21 11:25 Dose 50 mg .ROUTE .STK-MED ONE Sodium Chloride 1,000 mls @ 999 mls/hr 06/28/21 11:40 06/28/21 12:49 Sodium Chloride 0.9% 1000 Ml IV 06/28/21 12:40 Infused .Q1H1M STA Infusion Sodium Chloride Confirm 06/28/21 11:44 Sodium Chloride 0.9% 1000 Ml Administered 06/28/21 11:45 Dose 1,000 mls @ ud .ROUTE .STK-MED ONE Ketorolac Tromethamine 30 mg 06/28/21 17:26 06/28/21 17:29 Ketorolac Tromethamine 30 Mg/Ml Inj IV 06/28/21 17:27 30 mg STAT ONE Administration Ketorolac Tromethamine Confirm 06/28/21 17:27 Ketorolac Tromethamine 30 Mg/Ml Inj Administered 06/28/21 17:28 Dose 30 mg .ROUTE .STK-MED ONE Lorazepam 1 mg 06/28/21 11:12 06/28/21 11:26 Lorazepam 2 Mg/1 Ml 2 Mg Vial IV 06/28/21 11:13 1 mg STAT ONE Administration Lorazepam Confirm 06/28/21 11:24 Lorazepam 2 Mg/1 Ml 2 Mg Vial Administered 06/28/21 11:25 Dose 2 mg .ROUTE .STK-MED ONE Lorazepam 2 mg 06/28/21 12:44 06/28/21 12:46 Lorazepam 2 Mg/1 Ml 2 Mg Vial IV 06/28/21 12:45 2 mg STAT ONE Administration Lorazepam Confirm 06/28/21 12:46 Lorazepam 2 Mg/1 Ml 2 Mg Vial Administered 06/28/21 12:47 Dose 2 mg .ROUTE .STK-MED ONE Ondansetron HCl 4 mg 06/28/21 11:40 06/28/21 11:49 Ondansetron Hcl 4 Mg/2 Ml Vial IV 06/28/21 11:41 4 mg STAT ONE Administration Ondansetron HCl Confirm 06/28/21 11:44 Ondansetron Hcl 4 Mg/2 Ml Vial Administered 06/28/21 11:45 Dose 4 mg .ROUTE .STK-MED ONE Lab/Rad Data: Laboratory Result Diagrams 06/28/21 11:02 06/28/21 11:02 Laboratory Results 06/28/21 06/28/21 06/28/21 Range/Units 15:42 11:02 11:02 WBC 6.5 (4.0-10.5) K/mm3 RBC 4.80 (4.1-5.4) M/mm3 Hgb 15.5 (12.0-16.0) gm/dl Hct 47.4 H (35-47) % MCV 98.8 (78-100) fl MCH 32.3 H (26-32) pg MCHC 32.7 (32-36) g/dl RDW 12.6 (11.5-14.0) % Plt Count 277 (150-450) K/mm3 MPV 10.0 (7.5-11.0) fl Gran % 59.0 (36.0-66.0) % Eos # (Auto) 0.05 (0-0.5) Absolute Lymphs (auto) 2.02 (1.0-4.6) Absolute Monos (auto) 0.59 (0.0-1.3) Lymphocytes % 30.9 (24.0-44.0) % Monocytes % 9.0 (0.0-12.0) % Eosinophils % 0.8 (0.00-5.0) % Basophils % 0.3 (0.0-0.4) % Absolute Granulocytes 3.86 (1.4-6.9) Basophils # 0.02 (0-0.4) Sodium 139 (137-145) mmol/L Potassium 4.3 (3.5-5.1) mmol/L Chloride 107 (98-107) mmol/L Carbon Dioxide 23 (22-30) mmol/L Anion Gap 13.0 (5-15) MEQ/L BUN 13 (7-17) mg/dL Creatinine 0.77 (0.52-1.04) mg/dL Estimated GFR > 60.0 ML/MIN Glucose 97 (74-106) mg/dL Calcium 9.1 (8.4-10.2) mg/dL Total Bilirubin 0.50 (0.2-1.3) mg/dL AST 40 H (14-36) U/L ALT 43 H (0-35) U/L Alkaline Phosphatase 69 (38-126) U/L Serum Total Protein 7.5 (6.3-8.2) g/dL Albumin 4.3 (3.5-5.0) g/dL Urine Color (YELLOW) Urine Appearance (CLEAR) Urine pH (5-6) Ur Specific [place] (1.005-1.025) Urine Protein (Negative) Urine Ketones (NEGATIVE) Urine Blood (0-5) Clay/ul Urine Nitrite (NEGATIVE) Urine Bilirubin (NEGATIVE) Urine Urobilinogen (0-1) mg/dL Ur Leukocyte Esterase (NEGATIVE) Urine WBC (Auto) (0-5) /HPF Urine RBC (Auto) (0-2) /HPF U Epithel Cells (Auto) (FEW) /HPF Urine Bacteria (Auto) (NEGATIVE) /HPF Urine Mucus (Auto) (NEGATIVE) /HPF Urine Culture Reflexed (NO) Urine Glucose (NEGATIVE) mg/dL Urine HCG, Qual (Negative) Salicylates < 1.0 L (2-20) mg/dL Urine Opiates Level (NEGATIVE) Ur Methadone (NEGATIVE) Acetaminophen < 10 L (10-30) ug/ml Urine Barbiturates (NEGATIVE) Ur Phencyclidine (PCP) (NEGATIVE) Urine Amphetamine (NEGATIVE) U Benzodiazepine Level (NEGATIVE) Urine Cocaine (NEGATIVE) Urine Marijuana (THC) (NEGATIVE) SARS-CoV-2 Ag (Rapid) POSITIVE A* (NEGATIVE) 06/28/21 06/28/21 06/28/21 Range/Units 10:54 10:54 10:54 WBC (4.0-10.5) K/mm3 RBC (4.1-5.4) M/mm3 Hgb (12.0-16.0) gm/dl Hct (35-47) % MCV (78-100) fl MCH (26-32) pg MCHC (32-36) g/dl RDW (11.5-14.0) % Plt Count (150-450) K/mm3 MPV (7.5-11.0) fl Gran % (36.0-66.0) % Eos # (Auto) (0-0.5) Absolute Lymphs (auto) (1.0-4.6) Absolute Monos (auto) (0.0-1.3) Lymphocytes % (24.0-44.0) % Monocytes % (0.0-12.0) % Eosinophils % (0.00-5.0) % Basophils % (0.0-0.4) % Absolute Granulocytes (1.4-6.9) Basophils # (0-0.4) Sodium (137-145) mmol/L Potassium (3.5-5.1) mmol/L Chloride (98-107) mmol/L Carbon Dioxide (22-30) mmol/L Anion Gap (5-15) MEQ/L BUN (7-17) mg/dL Creatinine (0.52-1.04) mg/dL Estimated GFR ML/MIN Glucose (74-106) mg/dL Calcium (8.4-10.2) mg/dL Total Bilirubin (0.2-1.3) mg/dL AST (14-36) U/L ALT (0-35) U/L Alkaline Phosphatase (38-126) U/L Serum Total Protein (6.3-8.2) g/dL Albumin (3.5-5.0) g/dL Urine Color GAIL (YELLOW) Urine Appearance SLIGHTLY CLOUDY (CLEAR) Urine pH 5.0 (5-6) Ur Specific [place] 1.024 (1.005-1.025) Urine Protein 30 (Negative) Urine Ketones NEGATIVE (NEGATIVE) Urine Blood NEGATIVE (0-5) Clay/ul Urine Nitrite NEGATIVE (NEGATIVE) Urine Bilirubin NEGATIVE (NEGATIVE) Urine Urobilinogen 2 (0-1) mg/dL Ur Leukocyte Esterase NEGATIVE (NEGATIVE) Urine WBC (Auto) 3-5 (0-5) /HPF Urine RBC (Auto) 0-2 (0-2) /HPF U Epithel Cells (Auto) RARE (FEW) /HPF Urine Bacteria (Auto) NONE (NEGATIVE) /HPF Urine Mucus (Auto) SLIGHT (NEGATIVE) /HPF Urine Culture Reflexed NO (NO) Urine Glucose NEGATIVE (NEGATIVE) mg/dL Urine HCG, Qual NEGATIVE (Negative) Salicylates (2-20) mg/dL Urine Opiates Level POSITIVE (NEGATIVE) Ur Methadone NEGATIVE (NEGATIVE) Acetaminophen (10-30) ug/ml Urine Barbiturates NEGATIVE (NEGATIVE) Ur Phencyclidine (PCP) NEGATIVE (NEGATIVE) Urine Amphetamine NEGATIVE (NEGATIVE) U Benzodiazepine Level NEGATIVE (NEGATIVE) Urine Cocaine NEGATIVE (NEGATIVE) Urine Marijuana (THC) POSITIVE (NEGATIVE) SARS-CoV-2 Ag (Rapid) (NEGATIVE) - Progress Progress: improved Progress Note: 06/28/21 15:57 She is given Ativan and Benadryl along with fluids, on reevaluation feeling better. She is medically cleared. Pending placement. 06/28/21 17:56 Patient COVID-19 test is positive. The only 2 facilities which do take psychiatric patient with positive COVID-19 are [facility] and [facility] which are at their full capacity currently. Discussed with Dr. Saxena and patient is being admitted here. Discussed with Dr.: Other (Dr. Saxena) Will see patient in: hospital (observation) Counseled pt/family regarding: lab results, diagnosis, rad results - Departure Departure Disposition: Observation Clinical Impression: Suicidal ideation, Drug withdrawal Condition: Stable Critical Care Time: No Referrals: DOCTOR,NO FAMILY [Primary Care Provider] - Follow up/PCP as directed
[2021-06-28] MEDS ORDERED: Zofran 4 MG/2 ML VIAL ONE (11:44)
[2021-06-28] MEDS ORDERED: Sodium Chloride 0.9% 1000 ML 1,000 ML ONE (11:44)
[2021-06-28 12:31] LABS: Amphetamine,Urine NEGATIVE (NEGATIVE); Barbiturate,Urine NEGATIVE (NEGATIVE); Benzodiazepine,Urine NEGATIVE (NEGATIVE); Cocaine,Urine NEGATIVE (NEGATIVE); Methadone,Urine NEGATIVE (NEGATIVE); Opiate,Urine POSITIVE (NEGATIVE); PCP,Urine NEGATIVE (NEGATIVE); THC,Urine POSITIVE (NEGATIVE)
[2021-06-28 15:53] LABS: COVID AG -BINAX NOW RAPID TEST POSITIVE (NEGATIVE)
[2021-06-28] MEDS ORDERED: TORAdol 30 mg Injection IV ONE (17:26)
[2021-06-28] MEDS ORDERED: TORAdol 30 mg Injection ONE (17:27)
[2021-06-28] MEDS ORDERED: TYLENOL 325 MG PO STA (20:15)
[2021-06-28] MEDS ORDERED: TYLENOL 325 MG ONE (20:16)
[2021-06-28] MEDS ORDERED: TORAdol 30 mg Injection IV PRN (22:24)
[2021-06-28] MEDS ORDERED: TYLENOL 325 MG PO PRN (22:24)
[2021-06-28] MEDS ORDERED: DUONEB 0.5-3 MG/3 ml Neb IH PRN (22:24)
[2021-06-29] MEDS: Sodium Chloride 0.9% 1000 ML 1,000 ML IV SCH ×2 (00:05→09:55)
[2021-06-29 05:48] LABS: Hematocrit 40.4 % (35-47); Hemoglobin 13.1 gm/dl (12.0-16.0); Mean Corpuscular Hemoglobin 32.4 pg (26-32); Mean Corpuscular Hgb Concent. 32.4 g/dl (32-36); Mean Platelet Volume 10.2 fl (7.5-11.0); Platelet Count 227 K/mm3 (150-450); Red Blood Count 4.04 M/mm3 (4.1-5.4); Red Cell Distribution Width 12.4 % (11.5-14.0); White Blood Count 7.2 K/mm3 (4.0-10.5)
[2021-06-29 06:00] LABS: ALBUMIN 3.2 g/dL (3.5-5.0); ALKALINE PHOSPHATASE 47 U/L (38-126); ANION GAP 10.4 MEQ/L (5-15); BLOOD UREA NITROGEN 18 mg/dL (7-17); CHLORIDE 108 mmol/L (98-107); Calcium 7.9 mg/dL (8.4-10.2); Carbon Dioxide 23 mmol/L (22-30); EST GLOMERULAR FILTRATION RATE > 60.0 ML/MIN; Glucose 90 mg/dL (74-106); Potassium 3.9 mmol/L (3.5-5.1); SGOT/AST 29 U/L (14-36); SGPT/ALT 29 U/L (0-35); SODIUM 138 mmol/L (137-145); Total Protein 6.2 g/dL (6.3-8.2)
[2021-06-29 07:54] LABS: ATYPICAL LYMPHS 1 %; Eosinophil 2 % (0.00-3.0); Lymphocytes 49 % (24-44); Monocyte 11 % (0.0-12.0); Neutrophils 37 % (36.0-66.0); Total Cells Counted 100
[2021-06-29 07:55] LABS: ANISOCYTOSIS 1+; Macrocytosis 1+; Platelet Estimate NORMAL (NORMAL)
[2021-06-29] MEDS ORDERED: HYDROCODONE-CHLORPHEN ER SUSP PO PRN (08:32)
[2021-06-29] MEDS ORDERED: TYLENOL EXTRA STRENGTH 500 MG PO PRN (08:32)
[2021-06-29] MEDS ORDERED: Ativan 1 MG PO PRN (08:43)
[2021-06-29] MEDS ORDERED: Ativan 2 MG/1 ML VIAL IV PRN (08:44)
--- NOTE | 2021-06-29 08:46 | XRAY ---
Indication: Cough. Suspect Covid 19. Comparison: May 15, 2014. Portable chest again demonstrates normal heart, lungs, and bony thorax.
[2021-06-29] MEDS ORDERED: REMDESIVIR 200 MG in Sodium Chloride 0.9% 250 ML 250 ML IV ONE (09:00)
[2021-06-29] MEDS: DECADRON 10MG INJ. IV SCH (09:50)
[2021-06-29] MEDS: Neurontin 400 MG PO SCH ×3 (09:50→21:34)
[2021-06-29] MEDS: PROTONIX 40 MG IV IV SCH (09:50)
[2021-06-29] MEDS: DOLOPHINE 10MG Tablet PO SCH ×3 (09:52→21:35)
[2021-06-29] MEDS ORDERED: Ativan 1 MG PO SCH (10:00)
[2021-06-29] MEDS: Ativan 2 MG/1 ML VIAL IV PRN ×3 (10:04→21:35)
[2021-06-29] MEDS: Zofran 4 MG/2 ML VIAL IV PRN ×2 (12:37→18:01)
[2021-06-29 16:12] LABS: INFLUENZA A NEGATIVE (NEGATIVE); INFLUENZA B NEGATIVE (NEGATIVE); RESPIRATORY SYNCTIAL VIRUS NEGATIVE (Negative)
[2021-06-29 16:15] LABS: SARS-CoV-2 Xpert Express POSITIVE (NEGATIVE)
[2021-06-29] MEDS: Nicoderm CQ 21 MG TOP SCH (16:27)
[2021-06-30] MEDS: Ativan 1 MG PO PRN ×2 (03:53→10:39)
[2021-06-30] MEDS: Sodium Chloride 0.9% 1000 ML 1,000 ML IV SCH (03:54)
[2021-06-30] MEDS: Zofran 4 MG/2 ML VIAL IV PRN (04:08)
[2021-06-30] MEDS: Ativan 2 MG/1 ML VIAL IV PRN (07:59)
[2021-06-30 08:28] VITALS: BP 150/62; PULSE 93
[2021-06-30] MEDS: DOLOPHINE 10MG Tablet PO SCH (08:45)
[2021-06-30] MEDS: Neurontin 400 MG PO SCH (08:45)
[2021-06-30] MEDS: DECADRON 10MG INJ. IV SCH (08:45)
[2021-06-30] MEDS: PROTONIX 40 MG IV IV SCH (08:45)
[2021-06-30] MEDS: Nicoderm CQ 21 MG TOP SCH (08:48)
[2021-06-30] MEDS ORDERED: PHENERGAN 25 MG PO ONE (09:34)
[2021-06-30] MEDS ORDERED: REMDESIVIR 100 MG in Sodium Chloride 0.9% 100 ML BAG 100 ML IV SCH (10:00)
[2021-06-30 10:07] VITALS: O2SAT 97
--- NOTE | 2021-06-30 10:52 | SSS ---
DISCHARGE DIAGNOSES: 1) COVID PNEUMONIA. 2) DEPRESSION WITH ATTEMPT TO SHOOT ONESELF. 3) ADDICTION TO MULTIPLE DRUGS INCLUDING OPIATES, BENZODIZEPINES. HOSPITAL COURSE: The patient showed up at the emergency room crying and shaking stating she was withdrawing from medicine she bought on the street lately which included Suboxone, benzos and gabapentin. She apparently has had this problem for two to three years at least. She said she does not want to but things are overbearing. She could not get into a program. She has been in some programs before, did not go into it very deeply. I am basically treating her COVID. I have asked the [facility] to evaluate her depression and dependency problems. She is alert, orientated and in no severe distress as I talk to her except for shakiness and stating that she is in withdrawal and that she aches and hurts all over from the COVID. PAST MEDICAL HISTORY: Prior dependency. REVIEW OF SYSTEMS: HEENT: Runny nose, decreased taste. CHEST: Frequent cough. CVS: No exertional chest pain or palpations, rheumatic fever, heart attacks or hypertension. ABDOMEN: Had some nausea, no vomiting. She had some diarrhea. EXTREMITIES: Aching all over. PHYSICAL EXAMINATION: The patient is an appropriately aged, thin, 25-year-old white female who is pleasant, alert, orientated. HEENT: Pupils equal and reactive to light. Pupils are 7 mm. NECK: Supple without adenopathy. CHEST: Clear. CVS: No murmurs or gallops. ABDOMEN: Scaphoid. No masses or organomegaly. EXTREMITIES: Fine tremor. Dry Cleaning Checker equal. Moves legs fine. IMPRESSION: The patient's symptoms are probably from withdrawal versus early COVID. She will be treated with Remdesivir, anticoagulated and Decadron for her COVID. I will probably go ahead and put her on some Ativan and see if I can get Suboxone to initiate treatment as she waits to get into a treatment program. Presently all of the treatment programs will not take her but will continue to try. She also tested positive for meth. HOSPITAL COURSE: The patient did very well. Her upper respiratory tract symptoms improved within two days. She slept with some Ativan. We did not have any Suboxone so we put her on some methadone 10 t.i.d., some Ativan and Neurontin. She will be transferred to a treatment center in [place]. I will try to get her into treatment here in [place] when she returns. Her vomiting has decreased, nausea has decreased. Depression is better but still there. Dependency needs to be addressed. She was given a prescription for 12 Phenergan for nausea. PROGNOSIS: [place] to be good as far as COVID.
== END 2021-06-30 10:40 | disposition short-term general hospital (02) ==
LOC: ED 10:28 → MED SURG 22:21
PROVIDERS: ADMIT Family Medicine; ATTEND Family Medicine
DX: U07.1 COVID-19 (principal); J12.82 Pneumonia due to coronavirus disease 2019; F32.A Depression, unspecified; R45.851 Suicidal ideations; F19.239 Other psychoactive substance dependence with withdrawal, unspecified; R00.0 Tachycardia, unspecified; Z20.828 Contact with and (suspected) exposure to other viral communicable diseases
CPT/HCPCS: 0241U; 36415; 71045; 80053; 80307; 81001; 84703; 85025; 93268; 94762; 96360; 96374; 96375; 96376; 99000; 99285; G0378; J1100; J1200; J1885; J2060; J2405; A9270-GY